=== PATIENT | female | born 1995 | race Caucasian/White ===

== ENCOUNTER 2025-04-25 13:20 | Emergency (ER) | payer MEDICAID ==
[~2025-04-25] VITALS: Ht 162.6 cm; Wt 59.0 kg
[2025-04-25 13:26] VITALS: BP 111/77
[2025-04-25] MEDS ORDERED: HYDR-3973 PO (16:15)
[2025-04-25] MEDS ORDERED: OXYCODONE/APAP 5-325 MG TABLET ONE (16:15)
[2025-04-25] MEDS: OXYCODONE/APAP 5-325 MG TABLET PO ONE (16:19)
[2025-04-25 16:50] VITALS: BP 113/67; O2SAT 99
== END 2025-04-25 16:54 | disposition home or self-care (01) ==
LOC: ER 13:20
DX: S92.354A Nondisplaced fracture of fifth metatarsal bone, right foot, initial encounter for closed fracture (principal); W01.0XXA Fall on same level from slipping, tripping and stumbling without subsequent striking against object, initial encounter; Y93.89 Activity, other specified; Y92.89 Other specified places as the place of occurrence of the external cause; Y99.9 Unspecified external cause status
CPT/HCPCS: 73630; A4606; A4663